=== PATIENT | male | born 1985 | race Caucasian/White ===

== ENCOUNTER 2021-05-20 16:21 | Inpatient (IN) | payer MEDICAID ==
[~2021-05-20] VITALS: Ht 172.7 cm; Wt 84.1 kg
[2021-05-20 17:03] LABS: BASOPHILS % (AUTO) 0.4 % (0.0-2.0); EOSINOPHILS % (AUTO) 0.1 % (1.0-6.0); HEMATOCRIT 46.6 % (41-53); HEMOGLOBIN 15.6 g/dL (13.5-17.5); LYMPHOCYTES # (AUTO) 3.9 K/uL (1.0-4.8); MEAN CORPUSCULAR HEMOGLOBIN 28.7 pg (26.0-34.0); MEAN CORPUSCULAR HGB CONC 33.5 G/dL (31.0-37.0); MEAN CORPUSCULAR VOLUME 86 fL (80-100); MONOCYTES # (AUTO) 0.5 K/uL (0.1-1.0); MONOCYTES % (AUTO) 4.3 % (2.0-9.0); NEUTROPHILS # (AUTO) 7.3 K/uL (1.8-7.7); NEUTROPHILS % (AUTO) 62.2 % (40.0-70.0); PLATELET COUNT (AUTO) 443 K/uL (150-450); RED BLOOD CELL COUNT(AUTO) 5.45 MIL/uL (4.50-5.90); RED CELL DISTRIBUTION WIDTH 14.4 % (11.5-14.5)
[2021-05-20 17:13] LABS: ANION GAP 14 mmol/L (8-16); CALCIUM, TOTAL 8.8 mg/dL (8.8-10.5); CARBON DIOXIDE 28 mmol/L (22-29); CHLORIDE 100 mmol/L (98-107); CREATININE 0.85 mg/dL (0.60-1.30); GLOMERULAR FILTR. RATE CALC > 60 mL/min (>60); GLUCOSE,RANDOM 120 mg/dL (70-110); POTASSIUM 3.5 mmol/L (3.5-5.1); SODIUM SERUM 142 mmol/L (136-145); UREA NITROGEN, BLOOD 6 mg/dL (7-18)
[2021-05-20 17:18] LABS: ALANINE AMINOTRANSFERASE 39 U/L (12-78); ALBUMIN 4.3 g/dL (3.4-5.0); ALKALINE PHOSPHATASE 88 U/L (46-116); ASPARTATE AMINOTRANSFERASE 52 U/L (15-37); BILIRUBIN,TOTAL 0.5 mg/dL (0.1-1.0); TOTAL PROTEIN, SERUM 8.1 g/dL (6.4-8.2)
[2021-05-20] MEDS ORDERED: LORazepam 1 MG TABLET PO ONE (18:00)
[2021-05-20] MEDS ORDERED: DiphenhydrAMINE HCL 25 MG CAPSULE PO ONE (18:00)
[2021-05-20 18:49] LABS: COVID AG,FIA SOURCE NASAL SWAB
[2021-05-20] MEDS ORDERED: HALOPERIDOL 5 MG TABLET PO PRN (19:00)
[2021-05-20] MEDS ORDERED: ZOLPIDEM TARTRATE 10 MG TABLET PO PRN (19:00)
[2021-05-21] VITALS (9 sets, daily range): BP systolic 120–142; BP diastolic 63–84
[2021-05-21] MEDS: LORazepam 2 MG TABLET PO PRN ×2 (03:35→10:17)
[2021-05-21] MEDS ORDERED: DOCUSATE SODIUM 100 MG CAPSULE PO PRN (09:30)
[2021-05-21] MEDS ORDERED: MAGNESIUM HYDROXIDE SUSPENSION 30 ML UDCUP PO PRN (09:30)
[2021-05-21] MEDS ORDERED: ONDANSETRON HCL 4 MG TABLET PO PRN (09:30)
[2021-05-21] MEDS ORDERED: CloNIDine HCL 0.1 MG TABLET PO PRN (09:30)
[2021-05-21] MEDS ORDERED: ACETAMINOPHEN 325 MG TABLET PO PRN (09:30)
[2021-05-21] MEDS ORDERED: MAG HYDROX/AL HYDROX/SIMETH ES 30 ML SUSPENSION UDCUP PO PRN (09:30)
[2021-05-21] MEDS ORDERED: LOPERAMIDE HCL 2 MG CAPSULE PO PRN (09:30)
[2021-05-21] MEDS ORDERED: IBUPROFEN 400 MG TABLET PO PRN (09:30)
[2021-05-21] MEDS ORDERED: NICOTINE 14 MG/24 HOUR PATCH TD PRN (09:30)
[2021-05-21] MEDS ORDERED: PETROLATUM,WHITE 28 GM JELLY TP PRN (09:30)
[2021-05-21] MEDS ORDERED: ALBUTEROL SULFATE HFA 90 MCG/PUFF 8 GM INHALER IH PRN (09:30)
[2021-05-21] MEDS ORDERED: GuaiFENesin/D-METHORPHAN [SUGAR-FREE] 200-20MG/10 ML SYRUP UDCUP PO PRN (09:30)
[2021-05-21] MEDS ORDERED: LORazepam 2 MG TABLET PO PRN (12:00)
[2021-05-21] MEDS ORDERED: CYANOCOBALAMIN 1,000 MCG/ML VIAL IM ONE (12:00)
[2021-05-21] MEDS: FOLIC ACID 1 MG TABLET PO SCH (13:09)
[2021-05-21] MEDS: MULTIVITAMINS WITH MINERALS, THERAPEUTIC TABLET PO SCH (13:09)
[2021-05-21] MEDS: THIAMINE 100 MG TABLET PO SCH (16:35)
[2021-05-21] MEDS: BACITRACIN 28 GM OINTMENT TP SCH (16:38)
[2021-05-22] MEDS ORDERED: LORazepam 2 MG TABLET PO PRN (07:00)
[2021-05-22] MEDS: LORazepam 2 MG TABLET PO SCH ×4 (08:30→20:08)
[2021-05-22] MEDS: FOLIC ACID 1 MG TABLET PO SCH (08:30)
[2021-05-22] MEDS: THIAMINE 100 MG TABLET PO SCH ×2 (08:30→16:25)
[2021-05-22] MEDS: MULTIVITAMINS WITH MINERALS, THERAPEUTIC TABLET PO SCH (08:30)
[2021-05-22] MEDS: BACITRACIN 28 GM OINTMENT TP SCH ×2 (08:30→16:25)
[2021-05-22] MEDS: SERTRALINE HCL 50 MG TABLET PO SCH (08:30)
[2021-05-22 09:00] VITALS: BP 113/77
[2021-05-22 11:14] VITALS: BP 133/77
[2021-05-22 13:40] VITALS: BP 123/77
[2021-05-22 14:07] VITALS: BP 123/77
[2021-05-22 16:11] VITALS: BP 116/72
[2021-05-23 01:06] VITALS: BP 120/80
[2021-05-23 08:00] VITALS: BP 137/79
[2021-05-23] MEDS: MULTIVITAMINS WITH MINERALS, THERAPEUTIC TABLET PO SCH (08:35)
[2021-05-23] MEDS: THIAMINE 100 MG TABLET PO SCH ×2 (08:35→16:42)
[2021-05-23] MEDS: SERTRALINE HCL 50 MG TABLET PO SCH (08:35)
[2021-05-23] MEDS: FOLIC ACID 1 MG TABLET PO SCH (08:35)
[2021-05-23] MEDS: LORazepam 2 MG TABLET PO SCH ×4 (08:35→21:08)
[2021-05-23] MEDS: BACITRACIN 28 GM OINTMENT TP SCH ×2 (09:37→16:42)
[2021-05-23 16:00] VITALS: BP 134/88
[2021-05-24 06:18] VITALS: BP 119/63
[2021-05-24] MEDS ORDERED: LORazepam 1 MG TABLET PO PRN (07:00)
[2021-05-24 08:00] VITALS: BP 153/89
[2021-05-24] MEDS: THIAMINE 100 MG TABLET PO SCH ×2 (08:37→16:50)
[2021-05-24] MEDS: MULTIVITAMINS WITH MINERALS, THERAPEUTIC TABLET PO SCH (08:37)
[2021-05-24] MEDS: LORazepam 1 MG TABLET PO SCH ×4 (08:37→20:57)
[2021-05-24] MEDS: FOLIC ACID 1 MG TABLET PO SCH (08:37)
[2021-05-24] MEDS: SERTRALINE HCL 50 MG TABLET PO SCH (08:38)
[2021-05-24] MEDS: BACITRACIN 28 GM OINTMENT TP SCH ×2 (11:37→16:51)
[2021-05-24 16:31] VITALS: BP 149/92
[2021-05-25 05:35] VITALS: BP 140/79
[2021-05-25 05:38] VITALS: BP 140/79
[2021-05-25] MEDS ORDERED: LORazepam 1 MG TABLET PO PRN (07:00)
[2021-05-25 08:00] VITALS: BP 119/75
[2021-05-25] MEDS: THIAMINE 100 MG TABLET PO SCH ×2 (08:37→17:09)
[2021-05-25] MEDS: FOLIC ACID 1 MG TABLET PO SCH (08:37)
[2021-05-25] MEDS: SERTRALINE HCL 50 MG TABLET PO SCH (08:37)
[2021-05-25] MEDS: MULTIVITAMINS WITH MINERALS, THERAPEUTIC TABLET PO SCH (08:37)
[2021-05-25] MEDS: BACITRACIN 28 GM OINTMENT TP SCH ×2 (10:27→17:09)
[2021-05-25 16:58] VITALS: BP 120/73
[2021-05-25 16:59] VITALS: BP 120/73
[2021-05-26 06:28] VITALS: BP 118/71
[2021-05-26 08:27] VITALS: BP 139/88
[2021-05-26] MEDS: SERTRALINE HCL 50 MG TABLET PO SCH (08:27)
[2021-05-26] MEDS: FOLIC ACID 1 MG TABLET PO SCH (08:27)
[2021-05-26] MEDS: MULTIVITAMINS WITH MINERALS, THERAPEUTIC TABLET PO SCH (08:27)
[2021-05-26] MEDS: THIAMINE 100 MG TABLET PO SCH ×2 (08:27→16:21)
[2021-05-26 11:45] LABS: COVID AG,FIA SOURCE NASAL SWAB
[2021-05-26] MEDS: BACITRACIN 28 GM OINTMENT TP SCH ×2 (12:18→16:22)
[2021-05-26 16:00] VITALS: BP_SYST 14; BP_SYST 140; BP_DIAS 69
[2021-05-26 16:36] VITALS: BP 140/69
[2021-05-27 05:48] VITALS: BP 115/66
[2021-05-27 06:33] LABS: BASOPHILS % (AUTO) 0.4 % (0.0-2.0); HEMATOCRIT 39.5 % (41-53); LYMPHOCYTES # (AUTO) 2.6 K/uL (1.0-4.8); LYMPHOCYTES % (AUTO) 35.6 % (22.0-44.0); MEAN CORPUSCULAR HEMOGLOBIN 29.1 pg (26.0-34.0); MEAN CORPUSCULAR HGB CONC 32.9 G/dL (31.0-37.0); MEAN CORPUSCULAR VOLUME 88 fL (80-100); MONOCYTES # (AUTO) 0.7 K/uL (0.1-1.0); MONOCYTES % (AUTO) 9.3 % (2.0-9.0); NEUTROPHILS # (AUTO) 3.6 K/uL (1.8-7.7); NEUTROPHILS % (AUTO) 48.7 % (40.0-70.0); PLATELET COUNT (AUTO) 233 K/uL (150-450); RED BLOOD CELL COUNT(AUTO) 4.47 MIL/uL (4.50-5.90); RED CELL DISTRIBUTION WIDTH 14.8 % (11.5-14.5)
[2021-05-27 06:35] LABS: D-DIMER 0.33 mg/L FEU (0.00-0.50); INR 0.9 (0.9-1.1); PROTHROMBIN TIME 10.1 SEC (9.4-11.6)
[2021-05-27] MEDS: BACITRACIN 28 GM OINTMENT TP SCH ×2 (08:20→16:54)
[2021-05-27] MEDS: THIAMINE 100 MG TABLET PO SCH ×2 (08:20→16:54)
[2021-05-27] MEDS: FOLIC ACID 1 MG TABLET PO SCH (08:20)
[2021-05-27] MEDS: SERTRALINE HCL 50 MG TABLET PO SCH ×2 (08:20→08:24)
[2021-05-27] MEDS: MULTIVITAMINS WITH MINERALS, THERAPEUTIC TABLET PO SCH (08:20)
[2021-05-27 10:10] VITALS: BP 140/88
[2021-05-27 10:22] VITALS: BP 140/88
[2021-05-27 16:00] VITALS: BP 113/78
[2021-05-27] MEDS: ASCORBIC ACID 500 MG TABLET PO SCH (16:54)
[2021-05-28] MEDS: MULTIVITAMINS WITH MINERALS, THERAPEUTIC TABLET PO SCH (08:10)
[2021-05-28] MEDS: FOLIC ACID 1 MG TABLET PO SCH (08:10)
[2021-05-28] MEDS: ASCORBIC ACID 500 MG TABLET PO SCH ×2 (08:10→16:09)
[2021-05-28] MEDS: BACITRACIN 28 GM OINTMENT TP SCH (08:10)
[2021-05-28] MEDS: THIAMINE 100 MG TABLET PO SCH ×2 (08:10→16:09)
[2021-05-28] MEDS: SERTRALINE HCL 50 MG TABLET PO SCH (08:40)
[2021-05-28 09:37] VITALS: BP 114/66
[2021-05-28 16:23] VITALS: BP 124/76
[2021-05-29 08:00] VITALS: BP 136/80
[2021-05-29] MEDS: FOLIC ACID 1 MG TABLET PO SCH (08:26)
[2021-05-29] MEDS: MULTIVITAMINS WITH MINERALS, THERAPEUTIC TABLET PO SCH (08:26)
[2021-05-29] MEDS: THIAMINE 100 MG TABLET PO SCH (08:26)
[2021-05-29] MEDS: ASCORBIC ACID 500 MG TABLET PO SCH (08:26)
[2021-05-29] MEDS: SERTRALINE HCL 50 MG TABLET PO SCH (09:00)
[2021-05-29] MEDS ORDERED: ASCO500 PO (11:42)
[2021-05-29] MEDS ORDERED: SERT-158 PO (11:42)
== END 2021-05-29 14:15 | disposition home or self-care (01) | DRG 751 ==
LOC: EMS 16:22 → 3EI 05-21 04:52
PROVIDERS: ADMIT Psychiatry & Neurology Psychiatry; ATTEND Psychiatry & Neurology Psychiatry
DX: F33.2 Major depressive disorder, recurrent severe without psychotic features (principal); K70.30 Alcoholic cirrhosis of liver without ascites; F10.129 Alcohol abuse with intoxication, unspecified; R73.9 Hyperglycemia, unspecified; R74.01 Elevation of levels of liver transaminase levels; Z20.822 Contact with and (suspected) exposure to COVID-19; Y90.8 Blood alcohol level of 240 mg/100 ml or more; F19.10 Other psychoactive substance abuse, uncomplicated; Z65.3 Problems related to other legal circumstances; Z79.899 Other long term (current) drug therapy; Z59.00 Homelessness unspecified; Z87.891 Personal history of nicotine dependence; Z71.41 Alcohol abuse counseling and surveillance of alcoholic; Z71.51 Drug abuse counseling and surveillance of drug abuser
CPT/HCPCS: 80053; 85025; 85379; 85384; 85610; 85730; 99285; G0480; J3420

== ENCOUNTER 2021-06-02 08:10 | Emergency (ER) | payer MEDICAID ==
[~2021-06-02] VITALS: Ht 172.7 cm; Wt 84.1 kg
[~2021-06-02 08:10] MED LIST: ASCO500 PO; SERT-158 PO
[2021-06-02 09:10] LABS: BASOPHILS % (AUTO) 1.8 % (0.0-2.0); EOSINOPHILS % (AUTO) 0.6 % (1.0-6.0); HEMATOCRIT 45.4 % (41-53); HEMOGLOBIN 15.1 g/dL (13.5-17.5); LYMPHOCYTES # (AUTO) 3.2 K/uL (1.0-4.8); MEAN CORPUSCULAR HEMOGLOBIN 29.1 pg (26.0-34.0); MEAN CORPUSCULAR HGB CONC 33.2 G/dL (31.0-37.0); MEAN CORPUSCULAR VOLUME 88 fL (80-100); MONOCYTES # (AUTO) 0.5 K/uL (0.1-1.0); MONOCYTES % (AUTO) 6.9 % (2.0-9.0); NEUTROPHILS # (AUTO) 3.1 K/uL (1.8-7.7); NEUTROPHILS % (AUTO) 44.7 % (40.0-70.0); PLATELET COUNT (AUTO) 343 K/uL (150-450); RED BLOOD CELL COUNT(AUTO) 5.17 MIL/uL (4.50-5.90)
[2021-06-02 09:19] LABS: ANION GAP 5 mmol/L (8-16); CALCIUM, TOTAL 8.6 mg/dL (8.8-10.5); CARBON DIOXIDE 34 mmol/L (22-29); CHLORIDE 105 mmol/L (98-107); CREATININE 0.85 mg/dL (0.60-1.30); GLOMERULAR FILTR. RATE CALC > 60 mL/min (>60); GLUCOSE,RANDOM 121 mg/dL (70-110); POTASSIUM 3.5 mmol/L (3.5-5.1); SODIUM SERUM 144 mmol/L (136-145); UREA NITROGEN, BLOOD 5 mg/dL (7-18)
[2021-06-02 09:22] LABS: INR 0.9 (0.9-1.1); PROTHROMBIN TIME 9.8 SEC (9.4-11.6)
[2021-06-02 09:25] LABS: ALANINE AMINOTRANSFERASE 43 U/L (12-78); ALBUMIN 3.9 g/dL (3.4-5.0); ALKALINE PHOSPHATASE 80 U/L (46-116); ASPARTATE AMINOTRANSFERASE 30 U/L (15-37); BILIRUBIN,TOTAL 0.2 mg/dL (0.1-1.0); TOTAL PROTEIN, SERUM 7.5 g/dL (6.4-8.2)
[2021-06-02 13:19] VITALS: BP 140/80
== END 2021-06-02 13:31 | disposition home or self-care (01) ==
LOC: EMS 08:10
DX: F10.129 Alcohol abuse with intoxication, unspecified (principal); K70.30 Alcoholic cirrhosis of liver without ascites; R45.851 Suicidal ideations
CPT/HCPCS: 36415; 80053; 85025; 85610; 85730; 99283; G0480

== ENCOUNTER 2021-06-06 10:07 | Inpatient (IN) | payer MEDICAID ==
[~2021-06-06] VITALS: Ht 172.7 cm; Wt 84.1 kg
[2021-06-06 10:46] LABS: BASOPHILS % (AUTO) 0.5 % (0.0-2.0); EOSINOPHILS % (AUTO) 0.1 % (1.0-6.0); HEMOGLOBIN 15.6 g/dL (13.5-17.5); LYMPHOCYTES # (AUTO) 2.9 K/uL (1.0-4.8); LYMPHOCYTES % (AUTO) 31.5 % (22.0-44.0); MEAN CORPUSCULAR HGB CONC 33.3 G/dL (31.0-37.0); MEAN CORPUSCULAR VOLUME 87 fL (80-100); MONOCYTES # (AUTO) 0.3 K/uL (0.1-1.0); MONOCYTES % (AUTO) 3.7 % (2.0-9.0); NEUTROPHILS # (AUTO) 5.9 K/uL (1.8-7.7); NEUTROPHILS % (AUTO) 64.2 % (40.0-70.0); PLATELET COUNT (AUTO) 445 K/uL (150-450); RED BLOOD CELL COUNT(AUTO) 5.39 MIL/uL (4.50-5.90)
[2021-06-06 11:03] LABS: ANION GAP 9 mmol/L (8-16); CALCIUM, TOTAL 8.5 mg/dL (8.8-10.5); CARBON DIOXIDE 30 mmol/L (22-29); CHLORIDE 103 mmol/L (98-107); CREATININE 0.86 mg/dL (0.60-1.30); GLOMERULAR FILTR. RATE CALC > 60 mL/min (>60); GLUCOSE,RANDOM 104 mg/dL (70-110); POTASSIUM 3.6 mmol/L (3.5-5.1); SODIUM SERUM 142 mmol/L (136-145); UREA NITROGEN, BLOOD 10 mg/dL (7-18)
[2021-06-06 11:09] LABS: ALANINE AMINOTRANSFERASE 44 U/L (12-78); ALBUMIN 4.4 g/dL (3.4-5.0); ALKALINE PHOSPHATASE 88 U/L (46-116); ASPARTATE AMINOTRANSFERASE 55 U/L (15-37); BILIRUBIN,TOTAL 0.4 mg/dL (0.1-1.0); TOTAL PROTEIN, SERUM 8.3 g/dL (6.4-8.2)
[2021-06-06 11:36] LABS: COVID AG,FIA SOURCE NASOPHARYNGEAL
[2021-06-06] MEDS ORDERED: CYANOCOBALAMIN 1,000 MCG/ML VIAL IM ONE (12:15)
[2021-06-06] MEDS ORDERED: THIAMINE 100 MG TABLET PO ONE (12:15)
[2021-06-06] MEDS ORDERED: LORazepam 2 MG TABLET PO PRN (12:15)
[2021-06-06] MEDS ORDERED: HALOPERIDOL 5 MG TABLET PO PRN (12:15)
[2021-06-06] MEDS ORDERED: ZOLPIDEM TARTRATE 10 MG TABLET PO PRN (12:15)
[2021-06-06] MEDS ORDERED: FOLIC ACID 1 MG TABLET PO ONE (12:15)
[2021-06-06] MEDS: LORazepam 2 MG TABLET PO PRN ×2 (16:16→19:34)
[2021-06-06 19:45] VITALS: BP 152/78
[2021-06-06 20:00] VITALS: BP 152/78
[2021-06-06 21:00] VITALS: BP 115/74
[2021-06-06 22:00] VITALS: BP 121/79
[2021-06-06 23:00] VITALS: BP 119/74
[2021-06-07] MEDS: LORazepam 2 MG TABLET PO PRN ×3 (00:56→11:57)
[2021-06-07 01:45] VITALS: BP 119/77
[2021-06-07 05:44] VITALS: BP 128/81
[2021-06-07] MEDS ORDERED: LORazepam 2 MG TABLET PO PRN (07:00)
[2021-06-07 07:08] LABS: CHOL/HDL RATIO 3.5 (4.2-7.3); FREE T4 (FREE THYROXINE) 0.8 ng/dL (0.76-1.46); THYROID STIMULATING HORMONE 3.33 uIU/mL (0.36-3.74)
[2021-06-07] MEDS: LORazepam 2 MG TABLET PO SCH ×4 (08:25→20:13)
[2021-06-07] MEDS: MULTIVITAMINS WITH MINERALS, THERAPEUTIC TABLET PO SCH (08:25)
[2021-06-07] MEDS ORDERED: ASCORBIC ACID 500 MG TABLET PO SCH (09:00)
[2021-06-07 11:00] VITALS: BP 135/75
[2021-06-07] MEDS ORDERED: MAG HYDROX/AL HYDROX/SIMETH ES 30 ML SUSPENSION UDCUP PO PRN (14:30)
[2021-06-07] MEDS ORDERED: ACETAMINOPHEN 325 MG TABLET PO PRN (14:30)
[2021-06-07] MEDS ORDERED: LOPERAMIDE HCL 2 MG CAPSULE PO PRN (14:30)
[2021-06-07] MEDS ORDERED: NICOTINE 14 MG/24 HOUR PATCH TD PRN (14:30)
[2021-06-07] MEDS ORDERED: CloNIDine HCL 0.1 MG TABLET PO PRN (14:30)
[2021-06-07] MEDS ORDERED: MAGNESIUM HYDROXIDE SUSPENSION 30 ML UDCUP PO PRN (14:30)
[2021-06-07] MEDS ORDERED: GuaiFENesin/D-METHORPHAN [SUGAR-FREE] 200-20MG/10 ML SYRUP UDCUP PO PRN (14:30)
[2021-06-07] MEDS ORDERED: ALBUTEROL SULFATE HFA 90 MCG/PUFF 8 GM INHALER IH PRN (14:30)
[2021-06-07] MEDS ORDERED: IBUPROFEN 400 MG TABLET PO PRN (14:30)
[2021-06-07] MEDS ORDERED: ONDANSETRON HCL 4 MG TABLET PO PRN (14:30)
[2021-06-07] MEDS ORDERED: DOCUSATE SODIUM 100 MG CAPSULE PO PRN (14:30)
[2021-06-07] MEDS ORDERED: PETROLATUM,WHITE 28 GM JELLY TP PRN (14:30)
[2021-06-07 16:00] VITALS: BP 135/80
[2021-06-07] MEDS: ASCORBIC ACID 500 MG TABLET PO SCH (16:13)
[2021-06-07] MEDS ORDERED: DiphenhydrAMINE HCL 25 MG CAPSULE PO ONE (18:30)
[2021-06-07 19:00] VITALS: BP 142/78
[2021-06-07] MEDS ORDERED: COLLOIDAL OATMEAL/DIMETH 227 GM LOTION TP PRN (19:30)
[2021-06-08 06:30] VITALS: BP 128/81
[2021-06-08] MEDS: LORazepam 2 MG TABLET PO SCH ×4 (09:42→20:27)
[2021-06-08] MEDS: MULTIVITAMINS WITH MINERALS, THERAPEUTIC TABLET PO SCH (09:42)
[2021-06-08] MEDS: ASCORBIC ACID 500 MG TABLET PO SCH ×2 (09:42→16:34)
[2021-06-08 09:55] VITALS: BP 158/97
[2021-06-08 09:57] VITALS: BP 158/97
[2021-06-08 16:28] VITALS: BP 131/78
[2021-06-08 16:29] VITALS: BP 131/78
[2021-06-08 16:30] VITALS: BP 131/78
[2021-06-08] MEDS ORDERED: DiphenhydrAMINE HCL 25 MG CAPSULE PO ONE (22:45)
[2021-06-08] MEDS ORDERED: DiphenhydrAMINE HCL 25 MG CAPSULE PO PRN (23:00)
[2021-06-09 00:32] VITALS: BP 141/65
[2021-06-09 00:38] VITALS: BP 141/65
[2021-06-09] MEDS ORDERED: LORazepam 1 MG TABLET PO PRN (07:00)
[2021-06-09 08:00] VITALS: BP 125/98
[2021-06-09] MEDS: LORazepam 1 MG TABLET PO SCH ×2 (09:00→13:00)
[2021-06-09] MEDS: MULTIVITAMINS WITH MINERALS, THERAPEUTIC TABLET PO SCH (09:00)
[2021-06-09] MEDS: ASCORBIC ACID 500 MG TABLET PO SCH (09:00)
[2021-06-09 09:34] VITALS: BP 125/98
[2021-06-09] MEDS ORDERED: SERTRALINE HCL 50 MG TABLET PO SCH (11:30)
[2021-06-10] MEDS ORDERED: LORazepam 1 MG TABLET PO PRN (07:00)
== END 2021-06-09 14:15 | disposition home or self-care (01) | DRG 751 ==
LOC: EMS 10:11 → 3EI 12:05
PROVIDERS: ADMIT Psychiatry & Neurology Psychiatry; ATTEND Psychiatry & Neurology Psychiatry
DX: F33.2 Major depressive disorder, recurrent severe without psychotic features (principal); R45.851 Suicidal ideations; E83.51 Hypocalcemia; Z91.14 Patient's other noncompliance with medication regimen; E78.5 Hyperlipidemia, unspecified; Z20.822 Contact with and (suspected) exposure to COVID-19; Z79.899 Other long term (current) drug therapy; F10.20 Alcohol dependence, uncomplicated; K29.20 Alcoholic gastritis without bleeding; R74.01 Elevation of levels of liver transaminase levels; Y90.8 Blood alcohol level of 240 mg/100 ml or more; Z59.00 Homelessness unspecified; Z65.3 Problems related to other legal circumstances; Z91.51 Personal history of suicidal behavior
CPT/HCPCS: 80053; 80061; 84439; 84443; 85025; 87081; 99285; G0480; J3420

== ENCOUNTER 2021-06-10 13:12 | Emergency (ER) | payer MEDICAID ==
[~2021-06-10] VITALS: Ht 172.7 cm; Wt 84.1 kg
[~2021-06-10 13:12] MED LIST changes: -ASCO500 PO
[2021-06-10 15:55] LABS: BASOPHILS % (AUTO) 0.4 % (0.0-2.0); EOSINOPHILS % (AUTO) 2.3 % (1.0-6.0); HEMATOCRIT 41.5 % (41-53); HEMOGLOBIN 14.2 g/dL (13.5-17.5); LYMPHOCYTES # (AUTO) 2.5 K/uL (1.0-4.8); LYMPHOCYTES % (AUTO) 31.9 % (22.0-44.0); MEAN CORPUSCULAR HEMOGLOBIN 29.8 pg (26.0-34.0); MEAN CORPUSCULAR HGB CONC 34.2 G/dL (31.0-37.0); MEAN CORPUSCULAR VOLUME 87 fL (80-100); MONOCYTES # (AUTO) 0.3 K/uL (0.1-1.0); MONOCYTES % (AUTO) 3.4 % (2.0-9.0); NEUTROPHILS # (AUTO) 4.8 K/uL (1.8-7.7); PLATELET COUNT (AUTO) 358 K/uL (150-450); RED BLOOD CELL COUNT(AUTO) 4.77 MIL/uL (4.50-5.90); RED CELL DISTRIBUTION WIDTH 15.2 % (11.5-14.5)
[2021-06-10 16:10] LABS: ANION GAP 11 mmol/L (8-16); CALCIUM, TOTAL 7.8 mg/dL (8.8-10.5); CARBON DIOXIDE 27 mmol/L (22-29); CHLORIDE 110 mmol/L (98-107); CREATININE 0.76 mg/dL (0.60-1.30); GLOMERULAR FILTR. RATE CALC > 60 mL/min (>60); GLUCOSE,RANDOM 99 mg/dL (70-110); POTASSIUM 4.1 mmol/L (3.5-5.1); SODIUM SERUM 148 mmol/L (136-145); UREA NITROGEN, BLOOD 4 mg/dL (7-18)
[2021-06-10 16:16] LABS: ALANINE AMINOTRANSFERASE 54 U/L (12-78); ALBUMIN 3.8 g/dL (3.4-5.0); ALKALINE PHOSPHATASE 71 U/L (46-116); ASPARTATE AMINOTRANSFERASE 45 U/L (15-37); BILIRUBIN,TOTAL 0.1 mg/dL (0.1-1.0); LIPASE 201 U/L (73-393); TOTAL PROTEIN, SERUM 7.4 g/dL (6.4-8.2)
[2021-06-10 17:09] VITALS: BP 136/76
== END 2021-06-10 18:26 | disposition home or self-care (01) ==
LOC: EMS 13:32
DX: F10.229 Alcohol dependence with intoxication, unspecified (principal); K70.30 Alcoholic cirrhosis of liver without ascites; R41.82 Altered mental status, unspecified; F32.9 Major depressive disorder, single episode, unspecified; Z79.899 Other long term (current) drug therapy; Y90.8 Blood alcohol level of 240 mg/100 ml or more
CPT/HCPCS: 36415; 80053; 83690; 85025; 99285; G0480

== ENCOUNTER 2021-06-10 21:35 | Emergency (ER) | payer MEDICAID ==
[~2021-06-10] VITALS: Ht 172.7 cm; Wt 84.1 kg
[2021-06-11 00:01] VITALS: BP 111/53
== END 2021-06-11 04:20 | disposition home or self-care (01) ==
LOC: EMS 21:36
DX: F10.129 Alcohol abuse with intoxication, unspecified (principal)
CPT/HCPCS: 36415; 99283; G0480

== ENCOUNTER 2021-06-11 08:59 | Emergency (ER) | payer MEDICAID ==
[~2021-06-11] VITALS: Ht 160 cm; Wt 84.0 kg
[2021-06-11 10:50] VITALS: BP 133/75
[2021-06-11] MEDS ORDERED: SODIUM CHLORIDE 0.9% 1,000 ML IV ONE (12:15)
[2021-06-11 12:34] LABS: BASOPHILS % (AUTO) 0.4 % (0.0-2.0); EOSINOPHILS % (AUTO) 1.4 % (1.0-6.0); HEMATOCRIT 42.6 % (41-53); HEMOGLOBIN 14.2 g/dL (13.5-17.5); LYMPHOCYTES # (AUTO) 2.2 K/uL (1.0-4.8); LYMPHOCYTES % (AUTO) 30.4 % (22.0-44.0); MEAN CORPUSCULAR HEMOGLOBIN 29.6 pg (26.0-34.0); MEAN CORPUSCULAR HGB CONC 33.4 G/dL (31.0-37.0); MEAN CORPUSCULAR VOLUME 89 fL (80-100); MONOCYTES # (AUTO) 0.3 K/uL (0.1-1.0); MONOCYTES % (AUTO) 3.8 % (2.0-9.0); NEUTROPHILS # (AUTO) 4.5 K/uL (1.8-7.7); PLATELET COUNT (AUTO) 345 K/uL (150-450); RED BLOOD CELL COUNT(AUTO) 4.81 MIL/uL (4.50-5.90); RED CELL DISTRIBUTION WIDTH 15.5 % (11.5-14.5)
[2021-06-11 12:45] LABS: ANION GAP 9 mmol/L (8-16); CALCIUM, TOTAL 8.5 mg/dL (8.8-10.5); CARBON DIOXIDE 29 mmol/L (22-29); CHLORIDE 107 mmol/L (98-107); CREATININE 0.74 mg/dL (0.60-1.30); GLOMERULAR FILTR. RATE CALC > 60 mL/min (>60); GLUCOSE,RANDOM 113 mg/dL (70-110); POTASSIUM 3.4 mmol/L (3.5-5.1); SODIUM SERUM 145 mmol/L (136-145); UREA NITROGEN, BLOOD 4 mg/dL (7-18)
[2021-06-11 12:51] LABS: ACETAMINOPHEN < 2 mcg/mL (10-30); ALANINE AMINOTRANSFERASE 53 U/L (12-78); ALBUMIN 4.1 g/dL (3.4-5.0); ALKALINE PHOSPHATASE 73 U/L (46-116); ASPARTATE AMINOTRANSFERASE 37 U/L (15-37); BILIRUBIN,TOTAL 0.2 mg/dL (0.1-1.0); TOTAL PROTEIN, SERUM 7.8 g/dL (6.4-8.2)
[2021-06-11 13:03] LABS: SALICYLATE < 2.8 mg/dL (2.8-20.0)
[2021-06-11] MEDS ORDERED: POTASSIUM CHLORIDE 20 MEQ ER TABLET PO ONE (14:15)
== END 2021-06-11 17:16 | disposition home or self-care (01) ==
LOC: EMS 08:59
DX: F10.129 Alcohol abuse with intoxication, unspecified (principal); Y90.8 Blood alcohol level of 240 mg/100 ml or more
CPT/HCPCS: 36415; 80053; 85025; 99283; G0480; 99285; G0481